=== PATIENT | female | born 1975 | race Caucasian/White ===

== ENCOUNTER 2018-02-01 10:46 | Emergency (ER) | payer SELFPAY ==
--- NOTE | 2018-02-01 11:39 | ER ---
Nurse's Notes [facility] Name: Lexi Bolaños Age: 42 yrs Sex: Female : 1975 Arrival Date: 02/01/2018 Time: 10:48 Bed 16 Private MD: None, None Diagnosis: Otalgia, left ear Presentation: 02/01 10:51 Presenting complaint: Patient states: Left ear pain for 1 week, got worse today. aj Transition of care: patient was not received from another setting of care. Onset of symptoms was January 25, 2018. Initial Sepsis Screen: Does the patient meet any 2 criteria? No. Patient's initial sepsis screen is negative. Does the patient have a suspected source of infection? No. Patient's initial sepsis screen is negative. Care prior to arrival: None. 10:51 Method Of Arrival: Ambulatory 10:51 Acuity: LUIS 5 aj Triage Assessment: 10:52 General: Appears in no apparent distress. comfortable, Behavior is calm, cooperative, aj appropriate for age. Pain: Complains of pain in left ear. EENT: Reports pain in left ear. Derm: Skin is intact, is healthy with good turgor, Skin is pink, warm \T\ dry. normal. 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 - Social history:: Smoking status: Patient/guardian denies using tobacco. Screenin:32 Abuse screen: Denies threats or abuse. Denies injuries from another. Nutritional ph screening: No deficits noted. Tuberculosis screening: No symptoms or risk factors identified. Fall Risk None identified. Assessment: 11:30 General: Appears in no apparent distress. comfortable, well groomed, Behavior is calm, ph cooperative, appropriate for age, Denies fever, feeling ill. Pain: Complains of pain in left ear. Neuro: Level of Consciousness is awake, alert, obeys commands, Oriented to person, place, time, situation. Cardiovascular: Capillary refill < 3 seconds Patient's skin is warm and dry. Respiratory: Airway is patent Respiratory effort is even, unlabored, Denies cough. EENT: Reports pain in left ear. Derm: Skin is intact, is healthy with good turgor, Skin is pink, warm \T\ dry. Musculoskeletal: Circulation, motion, and sensation intact. Range of motion: intact in all extremities. Vital Signs: 10:52 BP 157 / 92; Pulse 77; Resp 18; Temp 97.7; Pulse Ox 98% on R/A; Weight 79.38 kg; Height aj 5 ft. 8 in. (172.72 cm); Pain 7/10; 10:52 Body Mass Index 26.61 (79.38 kg, 172.72 cm) aj ED Course: 10:48 Patient arrived in ED. mr 10:48 None, None is Private Physician. mr 10:52 Triage completed. aj 10:52 Arm band placed on right wrist. Patient placed in an exam room. aj 10:56 Verna Hall FNP-C is PHCP. kb 10:56 Mono Hercules MD is Attending Physician. kb 11:30 Meeta Noyola, RN is Primary Nurse. ph 11:32 Patient has correct armband on for positive identification. Placed in gown. Bed in low ph position. Call light in reach. Side rails up X 1. Pulse ox on. NIBP on. Warm blanket given. 11:32 No provider procedures requiring assistance completed. Patient did not have IV access ph during this emergency room visit. Administered Medications: No medications were administered Outcome: 11:39 Discharge ordered by . kb 11:47 Discharged to home ambulatory. ph 11:47 Condition: good 11:47 Discharge instructions given to patient, Instructed on discharge instructions, follow up and referral plans. Demonstrated understanding of instructions, follow-up care. 11:47 Patient left the ED. ph Signatures: Verna Hall FNP-C FNP-Ckb Myers, Amanda, RN RN aj Rivera, Maria mr Meeta Noyola, BEVERLY PAUL ph
--- NOTE | 2018-02-01 11:39 | EDPHYS ---
Physician Documentation [facility] Name: Lexi Bolaños Age: 42 yrs Sex: Female : 1975 Arrival Date: 02/01/2018 Time: 10:48 Bed 16 Private MD: None, None ED Physician Mono Hercules HPI: 02/01 11:40 This 42 yrs old Female presents to ER via Ambulatory with complaints of Ear kb Pain. 11:40 The patient presents with pain, mild. The complaints affect the left ear. Onset: The kb symptoms/episode began/occurred 1 week(s) ago. Modifying factors: The symptoms are alleviated by nothing, the symptoms are aggravated by nothing. Associated signs and symptoms: The patient has no apparent associated signs or symptoms. Severity of symptoms: At their worst the symptoms were mild in the emergency department the symptoms are unchanged. The patient has not experienced similar symptoms in the past. The patient has not recently seen a physician. Pt states she has had left ear pain for a week and just wanted to make sure her eardrum was ok. Denies hearing abnormality, drainage, fever,. 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 - Social history:: Smoking status: Patient/guardian denies using tobacco. ROS: 11:39 Constitutional: Negative for fever, chills, and weight loss, Cardiovascular: Negative kb for chest pain, palpitations, and edema, Respiratory: Negative for shortness of breath, cough, wheezing, and pleuritic chest pain, Abdomen/GI: Negative for abdominal pain, nausea, vomiting, diarrhea, and constipation, : Negative for injury, bleeding, discharge, and swelling, MS/Extremity: Negative for injury and deformity, Skin: Negative for injury, rash, and discoloration, Neuro: Negative for headache, weakness, numbness, tingling, and seizure. 11:39 ENT: Positive for ear pain, Negative for injury or acute deformity, drainage from ear(s), rhinorrhea, sinus congestion, sinus pain, sore throat. Exam: 11:39 Constitutional: This is a well developed, well nourished patient who is awake, alert, kb and in no acute distress. Head/Face: Normocephalic, atraumatic. ENT: Nares patent. No nasal discharge, no septal abnormalities noted. Tympanic membranes are normal and external auditory canals are clear. Oropharynx with no redness, swelling, or masses, exudates, or evidence of obstruction, uvula midline. Mucous membranes moist. Neck: Trachea midline, no thyromegaly or masses palpated, and no cervical lymphadenopathy. Supple, full range of motion without nuchal rigidity, or vertebral point tenderness. No Meningismus. Chest/axilla: Normal chest wall appearance and motion. Nontender with no deformity. No lesions are appreciated. Cardiovascular: Regular rate and rhythm with a normal S1 and S2. No gallops, murmurs, or rubs. Normal PMI, no JVD. No pulse deficits. Respiratory: Lungs have equal breath sounds bilaterally, clear to auscultation and percussion. No rales, rhonchi or wheezes noted. No increased work of breathing, no retractions or nasal flaring. Abdomen/GI: Soft, non-tender, with normal bowel sounds. No distension or tympany. No guarding or rebound. No evidence of tenderness throughout. Skin: Warm, dry with normal turgor. Normal color with no rashes, no lesions, and no evidence of cellulitis. MS/ Extremity: Pulses equal, no cyanosis. Neurovascular intact. Full, normal range of motion. Neuro: Awake and alert, GCS 15, oriented to person, place, time, and situation. Cranial nerves II-XII grossly intact. Motor strength 5/5 in all extremities. Sensory grossly intact. Cerebellar exam normal. Normal gait. Vital Signs: 10:52 BP 157 / 92; Pulse 77; Resp 18; Temp 97.7; Pulse Ox 98% on R/A; Weight 79.38 kg; Height aj 5 ft. 8 in. (172.72 cm); Pain 7/10; 10:52 Body Mass Index 26.61 (79.38 kg, 172.72 cm) aj MDM: 11:04 Patient medically screened. [facility] 11:40 Data reviewed: vital signs, nurses notes. Data interpreted: Pulse oximetry: on room air kb is 98 %. Interpretation: normal. Counseling: I had a detailed discussion with the patient and/or guardian regarding: the historical points, exam findings, and any diagnostic results supporting the discharge/admit diagnosis, the need for outpatient follow up, an ENT specialist, to return to the emergency department if symptoms worsen or persist or if there are any questions or concerns that arise at home. Administered Medications: No medications were administered Disposition: 13:37 Co-signature as Attending Physician, Mono Hercules MD I agree with the assessment and ilia plan of care. Disposition: 02/01/18 11:39 Discharged to Home. Impression: Otalgia, left ear. - Condition is Stable. - Discharge Instructions: Earache. - Medication Reconciliation Form, Thank You Letter, Antibiotic Education, Prescription Opioid Use form. - Follow up: Private Physician; When: 2 - 3 days; Reason: Recheck today's complaints, Continuance of care, Re-evaluation by your physician. Follow up: Emergency Department; When: As needed; Reason: Worsening of condition. Signatures: Verna Hall, LUCY-C TABLE TENDER-Susan Gomez RN RN aj Anderson, Corey, MD MD cha Hall, Patricia RN RN ph Corrections: (The following items were deleted from the chart) 11:47 11:39 02/01/2018 11:39 Discharged to Home. Impression: Otalgia, left ear. Condition is ph Stable. Forms are Medication Reconciliation Form, Thank You Letter, Antibiotic Education, Prescription Opioid Use. Follow up: Private Physician; When: 2 - 3 days; Reason: Recheck today's complaints, Continuance of care, Re-evaluation by your physician. Follow up: Emergency Department; When: As needed; Reason: Worsening of condition. kb
== END 2018-02-01 11:47 | disposition home or self-care (01) ==
LOC: ER 10:46
DX: H92.02 Otalgia, left ear (principal)
CPT/HCPCS: 99283

== ENCOUNTER 2018-04-17 05:14 | Emergency (ER) | payer BC, SELFPAY ==
[2018-04-17] MEDS ORDERED: DIPHENOX/ATROP SULF 1 TAB PO ONE (05:43)
[2018-04-17] MEDS ORDERED: NA CHLORIDE 0.9% 1,000 ML ONE (05:43)
[2018-04-17] MEDS ORDERED: ONDANSETRON 4 MG/2 ML VIAL ONE (05:43)
[2018-04-17 05:59] LABS: Absolute Lymphocytes (CBC) 1.9 K/uL (0.7-4.9); Absolute Monocytes 0.5 K/uL (0.1-1.3); Absolute Neutrophil 3.2 K/uL (1.8-8.0); Basophils % 0.8 % (0-1.3); Eosinophils % 5.5 % (0-4.4); Hematocrit 36.9 % (36.0-45.0); Lymphocytes % 31.8 % (15.3-44.8); MCH 30.2 pg (27.0-35.0); MCV 87.8 fL (80-100); MPV 8.9 fL (7.6-11.3); Monocytes % 7.9 % (3.3-12.3)
[2018-04-17 06:34] LABS: ALT/SGPT 16 U/L (12-78); AST/SGOT 11 U/L (15-37); Albumin 3.7 g/dL (3.4-5.0); Alkaline Phosphatase 54 U/L (45-117); Amylase Level 51 U/L (25-115); BUN Blood Urea Nitrogen 10 mg/dL (7-18); Bicarbonate 29 mmol/L (21-32); Bilirubin Direct 0.1 mg/dL (0-0.2); Bilirubin Total 0.3 mg/dL (0.2-1.0); Glucose Level 94 mg/dL (74-106); Lipase 142 U/L (73-393); Potassium 3.9 mmol/L (3.5-5.1); Protein, Total 7.3 g/dL (6.4-8.2); Sodium Level 140 mmol/L (136-145)
--- NOTE | 2018-04-17 06:40 | EDPHYS ---
Physician Documentation [facility] Name: Lexi Bolaños Age: 43 yrs Sex: Female : 1975 Arrival Date: 04/17/2018 Time: 05:15 Bed 5 Private MD: ED Physician Cholo Oneal HPI: 04/17 05:37 This 43 yrs old Female presents to ER via Ambulatory with complaints of pkl Diarrhea. 05:37 The patient presents to the emergency department with vomiting, diarrhea. Onset: The pkl symptoms/episode began/occurred just prior to arrival, 2 hour(s) ago. Possible causes: unknown. 05:37 Patient had cyst removed from neck 2 weeks ago. Finished a course of antibiotic ( pkl Keflex ) [address] 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 - Social history:: Smoking status: Patient uses tobacco products, denies chronic smoking, but will smoke occasionally. - Ebola Screening: : No symptoms or risks identified at this time. ROS: 05:37 Eyes: Negative for injury, pain, redness, and discharge, ENT: Negative for injury, pkl pain, and discharge, Neck: Negative for injury, pain, and swelling, Cardiovascular: Negative for chest pain, palpitations, and edema, Respiratory: Negative for shortness of breath, cough, wheezing, and pleuritic chest pain. 05:37 Abdomen/GI: Positive for nausea, vomiting, and diarrhea. 05:37 Back: Negative for acute changes. 05:37 : Negative for urinary symptoms. 05:37 MS/extremity: Negative for acute changes. 05:37 Skin: Negative for rash. 05:37 Neuro: Negative for altered mental status. Exam: 05:37 Head/Face: Normocephalic, atraumatic. Eyes: Pupils equal round and reactive to light, pkl extra-ocular motions intact. Lids and lashes normal. Conjunctiva and sclera are non-icteric and not injected. Cornea within normal limits. Periorbital areas with no swelling, redness, or edema. ENT: Nares patent. No nasal discharge, no septal abnormalities noted. Tympanic membranes are normal and external auditory canals are clear. Oropharynx with no redness, swelling, or masses, exudates, or evidence of obstruction, uvula midline. Mucous membranes moist. Neck: Trachea midline, no thyromegaly or masses palpated, and no cervical lymphadenopathy. Supple, full range of motion without nuchal rigidity, or vertebral point tenderness. No Meningismus. Chest/axilla: Normal chest wall appearance and motion. Nontender with no deformity. No lesions are appreciated. Cardiovascular: Regular rate and rhythm with a normal S1 and S2. No gallops, murmurs, or rubs. Normal PMI, no JVD. No pulse deficits. Respiratory: Lungs have equal breath sounds bilaterally, clear to auscultation and percussion. No rales, rhonchi or wheezes noted. No increased work of breathing, no retractions or nasal flaring. 05:37 Abdomen/GI: Bowel sounds: active, Palpation: abdomen is soft and non-tender, in all quadrants. 05:37 Back: Exam negative for acute changes. 05:37 : Exam negative for acute changes. 05:37 Musculoskeletal/extremity: Exam is negative for acute changes. 05:37 Skin: Exam negative for rash. 05:37 Neuro: Orientation: is normal, Mentation: is normal, Cranial nerves: grossly normal, Motor: is normal. Vital Signs: 05:28 BP 174 / 92; Pulse 68; Resp 16; Temp 98.3(O); Pulse Ox 98% on R/A; Weight 83.91 kg; lp1 Height 5 ft. 8 in. (172.72 cm); Pain 0/10; 06:30 BP 152 / 71; Pulse 64; Resp 16; Pulse Ox 99% on R/A; lp1 05:28 Body Mass Index 28.13 (83.91 kg, 172.72 cm) lp1 MDM: 05:19 Patient medically screened. pkl 06:39 Data reviewed: vital signs, nurses notes, lab test result(s). pkl 04/17 05:35 Order name: Amylase, Serum; Complete Time: 06:34 pkl 04/17 05:35 Order name: Basic Metabolic Panel; Complete Time: 06:34 pkl 04/17 05:35 Order name: CBC with Diff; Complete Time: 06:10 pkl 04/17 05:35 Order name: Hepatic Function; Complete Time: 06:34 pkl 04/17 05:35 Order name: Lipase; Complete Time: 06:34 pkl 04/17 05:35 Order name: IV Saline Lock; Complete Time: 06:10 pkl 04/17 05:35 Order name: Labs collected and sent; Complete Time: 06:10 pkl Administered Medications: 05:51 Drug: NS 0.9% 1000 ml Route: IV; Rate: 1000 ml; Site: right antecubital; lp1 06:42 Follow up: IV Status: Completed infusion; IV Intake: 900ml lp1 05:51 Drug: Zofran 4 mg Route: IVP; Site: right antecubital; lp1 06:41 Follow up: Response: Nausea is decreased lp1 05:52 Drug: LoMOTIL 2 tabs Route: PO; lp1 06:42 Follow up: Response: No adverse reaction lp1 Disposition: 04/17/18 06:39 Discharged to Home. Impression: Gastrenteritis. - Condition is Stable. - Prescriptions for Zofran 4 mg Oral Tablet - take 1 tablet by ORAL route every 12 hours As needed; 6 tablet. Lomotil 2.5- 0.025 mg Oral Tablet - take 2 tablets by ORAL route once daily As needed; 10 tablet. - Work release form, Medication Reconciliation Form, Thank You Letter, Antibiotic Education, Prescription Opioid Use form. - Follow up: Private Physician; When: 1 - 2 days; Reason: Re-evaluation by your physician. - Problem is new. - Symptoms have improved. Signatures: Dispatcher [employer] [facility] Cholo Oneal MD MD pkl Vikki Graves, RN RN lp1 Corrections: (The following items were deleted from the chart) 05:51 05:36 Creatinine for Radiology+C.LAB.BRZ ordered. [facility] 06:59 06:39 04/17/2018 06:39 Discharged to Home. Impression: Gastrenteritis. Condition is lp1 Stable. Forms are Medication Reconciliation Form, Thank You Letter, Antibiotic Education, Prescription Opioid Use. Follow up: Private Physician; When: 1 - 2 days; Reason: Re-evaluation by your physician. Problem is new. Symptoms have improved. pkl
--- NOTE | 2018-04-17 06:40 | ER ---
Nurse's Notes [facility] Name: Lexi Bolaños Age: 43 yrs Sex: Female : 1975 Arrival Date: 04/17/2018 Time: 05:15 Bed 5 Private MD: Diagnosis: Gastrenteritis Presentation: 04/17 05:26 Presenting complaint: Patient states: Diarrhea that began 2 hours ago, states 3 lp1 episodes; feeling weak; Concerned because she had episodes of diarrhea last week as well; Cyst removal of neck a couple weeks ago, completed antibiotics last Sunday; Denies any fever, abdominal pain; states nausea at this time. Transition of care: patient was not received from another setting of care. Onset of symptoms was April 17, 2018 at 03:30. Risk Assessment: Do you want to hurt yourself or someone else? Patient reports no desire to harm self or others. Initial Sepsis Screen: Does the patient meet any 2 criteria? No. Patient's initial sepsis screen is negative. Does the patient have a suspected source of infection? No. Patient's initial sepsis screen is negative. Care prior to arrival: None. 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 - Social history:: Smoking status: Patient uses tobacco products, denies chronic smoking, but will smoke occasionally. - Ebola Screening: : No symptoms or risks identified at this time. Screenin:31 Abuse screen: Denies threats or abuse. Denies injuries from another. Nutritional lp1 screening: No deficits noted. Tuberculosis screening: No symptoms or risk factors identified. Fall Risk None identified. Assessment: 05:30 General: Appears in no apparent distress. Behavior is calm, cooperative, appropriate lp1 for age. Pain: Denies pain. Neuro: Level of Consciousness is awake, alert, obeys commands. Cardiovascular: Patient's skin is warm and dry. Respiratory: Respiratory effort is even, unlabored. GI: Abdomen is non-distended, Reports diarrhea, nausea. : No signs and/or symptoms were reported regarding the genitourinary system. EENT: No signs and/or symptoms were reported regarding the EENT system. Derm: Skin is pink, warm \T\ dry. Musculoskeletal: Circulation, motion, and sensation intact. 06:30 Reassessment: Patient appears in no apparent distress at this time. Patient is alert, lp1 oriented x 3, equal unlabored respirations, skin warm/dry/pink. Patient states feeling better. Patient states symptoms have improved. Vital Signs: 05:28 BP 174 / 92; Pulse 68; Resp 16; Temp 98.3(O); Pulse Ox 98% on R/A; Weight 83.91 kg; lp1 Height 5 ft. 8 in. (172.72 cm); Pain 0/10; 06:30 BP 152 / 71; Pulse 64; Resp 16; Pulse Ox 99% on R/A; lp1 05:28 Body Mass Index 28.13 (83.91 kg, 172.72 cm) lp1 ED Course: 05:15 Patient arrived in ED. ds1 05:18 Cholo Oneal MD is Attending Physician. pkl 05:25 Vikki Graves RN is Primary Nurse. lp1 05:28 Triage completed. lp1 05:28 Arm band placed on left wrist. lp1 05:31 Patient has correct armband on for positive identification. Pulse ox on. NIBP on. lp1 05:45 Inserted saline lock: 20 gauge in right antecubital area, using aseptic technique. By lp1 Artem Dallas RN. 06:41 No provider procedures requiring assistance completed. lp1 06:57 IV discontinued, No redness/swelling at site. Pressure dressing applied. lp1 Administered Medications: 05:51 Drug: NS 0.9% 1000 ml Route: IV; Rate: 1000 ml; Site: right antecubital; lp1 06:42 Follow up: IV Status: Completed infusion; IV Intake: 900ml lp1 05:51 Drug: Zofran 4 mg Route: IVP; Site: right antecubital; lp1 06:41 Follow up: Response: Nausea is decreased lp1 05:52 Drug: LoMOTIL 2 tabs Route: PO; lp1 06:42 Follow up: Response: No adverse reaction lp1 Intake: 06:42 IV: 900ml; Total: 900ml. lp1 Outcome: 06:39 Discharge ordered by . pkcoleen 06:57 Discharged to home ambulatory. lp1 06:57 Condition: good 06:57 Discharge instructions given to patient, Instructed on discharge instructions, follow up and referral plans. medication usage, Demonstrated understanding of instructions, follow-up care, medications, Prescriptions given X 2. 06:59 Patient left the ED. lp1 Signatures: Cholo Oneal MD MD pkJocelyn Maradiaga ds1 Vikki Graves, RN RN lp1
== END 2018-04-17 06:59 | disposition home or self-care (01) ==
LOC: ER 05:14
DX: K52.9 Noninfective gastroenteritis and colitis, unspecified (principal)
CPT/HCPCS: 36415; 80048; 80076; 82150; 83690; 85025; 96361; 96374; 99284; J2405; J7030

== ENCOUNTER 2018-06-01 07:20 | Emergency (ER) | payer BC, SELFPAY ==
--- NOTE | 2018-06-01 09:21 | ER ---
Nurse's Notes [facility] Name: Lexi Bolaños Age: 43 yrs Sex: Female : 1975 Arrival Date: 06/01/2018 Time: 07:22 Bed 5 Private MD: None, None Diagnosis: Viral upper respiratory infection Presentation: 06/01 07:40 Presenting complaint: Patient states: Body aches, sinus congestion, sneezing, hb productive cough with greenish sputum x 5 days. Transition of care: patient was not received from another setting of care. Onset of symptoms was May 28, 2018. Risk Assessment: Do you want to hurt yourself or someone else? Patient reports no desire to harm self or others. Initial Sepsis Screen: Does the patient meet any 2 criteria? No. Patient's initial sepsis screen is negative. Does the patient have a suspected source of infection? No. Patient's initial sepsis screen is negative. Care prior to arrival: None. 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 - Social history:: Smoking status: Patient/guardian denies using tobacco. - Ebola Screening: : No symptoms or risks identified at this time. - Family history:: not pertinent. - Hospitalizations: : No recent hospitalization is reported. Screenin:42 Abuse screen: Denies threats or abuse. Denies injuries from another. Nutritional hb screening: No deficits noted. Tuberculosis screening: No symptoms or risk factors identified. Fall Risk None identified. Assessment: 07:45 General: Appears in no apparent distress. Behavior is calm, cooperative. Pain: Pain hb currently is 2 out of 10 on a pain scale. Neuro: Level of Consciousness is awake, alert, obeys commands, Oriented to person, place, time, situation. Cardiovascular: Capillary refill < 3 seconds Patient's skin is warm and dry. Respiratory: Airway is patent Trachea midline Respiratory effort is even, unlabored, Respiratory pattern is regular, symmetrical, Breath sounds are clear bilaterally. GI: No signs and/or symptoms were reported involving the gastrointestinal system. : No signs and/or symptoms were reported regarding the genitourinary system. EENT: Reports pain when swallowing. Derm: No signs and/or symptoms reported regarding the dermatologic system. Skin is intact, is healthy with good turgor. Musculoskeletal: Reports body aches. 08:45 Reassessment: Patient appears in no apparent distress at this time. No changes from hb previously documented assessment. Patient and/or family updated on plan of care and expected duration. Pain level reassessed. Patient is alert, oriented x 3, equal unlabored respirations, skin warm/dry/pink. Vital Signs: 07:39 BP 143 / 89; Pulse 84; Resp 15; Temp 98.1; Pulse Ox 100% on R/A; Pain 2/10; hb 08:30 BP 123 / 73; Pulse 83; Resp 14; Pulse Ox 99% on R/A; hb ED Course: 07:22 Patient arrived in ED. sb2 07:22 None, None is Private Physician. sb2 07:35 Papito South MD is Attending Physician. rn 07:39 Yamini Landrum, RN is Primary Nurse. hb 07:41 Triage completed. hb 07:42 Arm band placed on right wrist. hb 07:42 Patient has correct armband on for positive identification. Bed in low position. Call hb light in reach. Side rails up X 1. 08:14 XRAY Chest Pa And Lat (2 Views) In Process Unspecified. EDMS 09:27 No provider procedures requiring assistance completed. Patient did not have IV access hb during this emergency room visit. Administered Medications: No medications were administered Outcome: 09:20 Discharge ordered by . rn 09:27 Discharged to home ambulatory. hb 09:27 Condition: stable 09:27 Discharge instructions given to patient, Instructed on discharge instructions, follow up and referral plans. medication usage, Demonstrated understanding of instructions, follow-up care, medications. 09:27 Patient left the ED. Signatures: Dispatcher [employer] EDMS Papito South MD MD rn Baxter, Heather, BEVERLY RN Breonna Lewis sb2
--- NOTE | 2018-06-01 09:21 | EDPHYS ---
Physician Documentation [facility] Name: Lexi Bolaños Age: 43 yrs Sex: Female : 1975 Arrival Date: 06/01/2018 Time: 07:22 Bed 5 Private MD: None, None ED Physician Papito South HPI: 06/01 07:47 This 43 yrs old Female presents to ER via Ambulatory with complaints of Flu rn Symptoms. 07:47 The patient or guardian reports cough, flu symptoms. rn 07:47 Onset: The symptoms/episode began/occurred 5 day(s) ago. Severity of symptoms: At their rn worst the symptoms were mild, in the emergency department the symptoms are unchanged. Associated signs and symptoms: Pertinent positives: rhinorrhea, sore throat. The patient has experienced similar episodes in the past. 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 - Social history:: Smoking status: Patient/guardian denies using tobacco. - Ebola Screening: : No symptoms or risks identified at this time. - Family history:: not pertinent. - Hospitalizations: : No recent hospitalization is reported. ROS: 07:47 Constitutional: Negative for fever, chills, and weight loss, Eyes: Negative for injury, rn pain, redness, and discharge, Neck: + sore throat Cardiovascular: Negative for chest pain, palpitations, and edema, Respiratory: + cough and sore throat Abdomen/GI: Negative for abdominal pain, nausea, vomiting, diarrhea, and constipation, MS/Extremity: Negative for injury and deformity, Skin: Negative for injury, rash, and discoloration, Neuro: Negative for headache, weakness, numbness, tingling, and seizure. Exam: 07:47 Constitutional: This is a well developed, well nourished patient who is awake, alert, rn and in no acute distress. Head/Face: Normocephalic, atraumatic. Eyes: Pupils equal round and reactive to light, extra-ocular motions intact. Lids and lashes normal. Conjunctiva and sclera are non-icteric and not injected. Cornea within normal limits. Periorbital areas with no swelling, redness, or edema. ENT: mild pharyngeal erythema, no stridor, MMM Neck: + bilateral cervical anterior LAD Cardiovascular: Regular rate and rhythm with a normal S1 and S2. No gallops, murmurs, or rubs. Normal PMI, no JVD. No pulse deficits. Respiratory: Lungs have equal breath sounds bilaterally, clear to auscultation and percussion. No rales, rhonchi or wheezes noted. No increased work of breathing, no retractions or nasal flaring. Skin: Warm, dry with normal turgor. Normal color with no rashes, no lesions, and no evidence of cellulitis. MS/ Extremity: Pulses equal, no cyanosis. Neurovascular intact. Full, normal range of motion. Equal circumference. Neuro: Awake and alert, GCS 15 Vital Signs: 07:39 BP 143 / 89; Pulse 84; Resp 15; Temp 98.1; Pulse Ox 100% on R/A; Pain 2/10; hb 08:30 BP 123 / 73; Pulse 83; Resp 14; Pulse Ox 99% on R/A; hb MDM: 07:35 Patient medically screened. rn 09:20 Differential Diagnosis: Bronchitis Influenza Upper Respiratory Infection Viral Syndrome rn Pneumonia. Data reviewed: vital signs, nurses notes, lab test result(s), radiologic studies, plain films, and as a result, I will discharge patient. Counseling: I had a detailed discussion with the patient and/or guardian regarding: the historical points, exam findings, and any diagnostic results supporting the discharge/admit diagnosis, lab results, radiology results, the need for outpatient follow up, to return to the emergency department if symptoms worsen or persist or if there are any questions or concerns that arise at home. Special discussion: I discussed with the patient/guardian in detail that at this point there is no indication for admission to the hospital. It is understood, however, that if the symptoms persist or worsen the patient needs to return immediately for re-evaluation. 06/01 07:43 Order name: Strep; Complete Time: 08:53 rn 06/01 07:43 Order name: Flu; Complete Time: 08:53 rn 06/01 07:43 Order name: XRAY Chest Pa And Lat (2 Views) rn 06/01 08:08 Order name: Throat Culture EDMS Administered Medications: No medications were administered Disposition: 06/01/18 09:20 Discharged to Home. Impression: Viral upper respiratory infection. - Condition is Stable. - Discharge Instructions: Upper Respiratory Infection, Adult, Cough, Adult. - Medication Reconciliation Form, Thank You Letter, Antibiotic Education, Prescription Opioid Use form. - Follow up: Private Physician; When: As needed; Reason: Recheck today's complaints, Re-evaluation by your physician. - Problem is an ongoing problem. - Symptoms are unchanged. Signatures: Dispatcher [employer] EDDE Papito South MD MD rn Baxter, Heather, RN RN hb Corrections: (The following items were deleted from the chart) : 09:20 06/01/2018 09:20 Discharged to Home. Impression: Viral upper respiratory hb infection. Condition is Stable. Forms are Medication Reconciliation Form, Thank You Letter, Antibiotic Education, Prescription Opioid Use. Follow up: Private Physician; When: As needed; Reason: Recheck today's complaints, Re-evaluation by your physician. Problem is an ongoing problem. Symptoms are unchanged. rn
--- NOTE | 2018-06-01 10:19 | RAD REPORT ---
EXAM DESCRIPTION: RAD - Chest Pa And Lat (2 Views) - 06/01/2018 9:37 am CLINICAL HISTORY: COUGH Chest pain. COMPARISON: Chest Pa And Lat (2 Views) dated 03/25/2017 FINDINGS: The lungs are clear. The heart is normal in size. No displaced fractures. IMPRESSION: No acute or concerning finding suspected.
== END 2018-06-01 09:27 | disposition home or self-care (01) ==
LOC: ER 07:20
DX: J06.9 Acute upper respiratory infection, unspecified (principal)
CPT/HCPCS: 71046; 87070; 87081; 87804; 99283

== ENCOUNTER 2018-09-13 06:55 | Emergency (ER) | payer SELFPAY ==
[2018-09-13 08:24] LABS: Urine Bacteria LOADED /HPF (<20); Urine RBC TNTC /HPF (NONE SEEN)
[2018-09-13 08:25] LABS: Urine Amorphous Sediment 3+ /HPF (NONE SEEN); Urine Culture Reflex Order NOT NEEDED
[2018-09-13 08:26] LABS: Urine Blood 2+ (NEG); Urine Glucose 1+ (NEG); Urine Protein 1+ (NEG); Urine pH 5.5 (5.0-7.0)
--- NOTE | 2018-09-13 08:29 | ER ---
Nurse's Notes [facility] Name: Lexi Bolaños Age: 43 yrs Sex: Female : 1975 Arrival Date: 09/13/2018 Time: 06:56 Bed 8 Private MD: Diagnosis: Urinary tract infection, site not specified Presentation: 09/13 07:08 Presenting complaint: Patient states: Productive cough with yellow sputum, body aches, bb headache, and pain with cough x 3 days. Transition of care: patient was not received from another setting of care. Onset of symptoms was September 11, 2018. Risk Assessment: Do you want to hurt yourself or someone else? Patient reports no desire to harm self or others. Initial Sepsis Screen: Does the patient meet any 2 criteria? No. Patient's initial sepsis screen is negative. Does the patient have a suspected source of infection? No. Patient's initial sepsis screen is negative. Care prior to arrival: None. 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 - Social history:: Smoking status: Patient/guardian denies using tobacco. - Ebola Screening: : No symptoms or risks identified at this time. Screenin:09 Abuse screen: Denies threats or abuse. Denies injuries from another. Nutritional bb screening: No deficits noted. Tuberculosis screening: No symptoms or risk factors identified. Fall Risk None identified. Assessment: 07:30 General: Appears in no apparent distress. comfortable, Behavior is calm, cooperative, ph appropriate for age, Reports fever for 2-3 days. Pain: Complains of pain in head and "all over". Neuro: Level of Consciousness is awake, alert, obeys commands, Oriented to person, place, time, situation, Reports headache Denies weakness blurred vision dizziness. Cardiovascular: Capillary refill < 3 seconds in bilateral fingers Patient's skin is warm and dry. Respiratory: Reports cough that is productive, Airway is patent Respiratory effort is even, unlabored, Respiratory pattern is regular, symmetrical, Breath sounds are clear bilaterally. GI: No signs and/or symptoms were reported involving the gastrointestinal system. EENT: Reports nasal congestion nasal discharge that is yellow. Derm: Skin is intact, is healthy with good turgor, Skin is pink, warm \\T\\ dry. Musculoskeletal: Circulation, motion, and sensation intact. Range of motion: intact in all extremities. 08:22 Reassessment: Patient appears in no apparent distress at this time. Patient and/or ph family updated on plan of care and expected duration. Pain level reassessed. Patient is alert, oriented x 3, equal unlabored respirations, skin warm/dry/pink. Pt resting quietly, awaiting lab results. 09:05 Reassessment: Pt waiting shot time before discharge. sv 09:17 Reassessment: Patient appears in no apparent distress at this time. Patient and/or sv family updated on plan of care and expected duration. Pain level reassessed. Patient is alert, oriented x 3, equal unlabored respirations, skin warm/dry/pink. Vital Signs: 07:08 BP 123 / 87; Pulse 92; Resp 16; Temp 97.9; Pulse Ox 100% on R/A; Pain 5/10; bb 08:00 BP 128 / 82; Pulse 91; Resp 18; Temp 97.5(TE); Pulse Ox 98% on R/A; ph 09:18 BP 118 / 78; Pulse 87; Resp 18; Pulse Ox 100% on R/A; ph ED Course: 06:56 Patient arrived in ED. es 06:58 [facility]il[facility]C [facility] snw 06:58 Mono Hercules MD is Attending Physician. snw 07:08 Triage completed. bb 07:09 Arm band placed on. bb 07:19 Amarilys Donis, RN is Primary Nurse. sv 07:34 Urine collected: clean catch specimen, cloudy, arun colored. jb1 08:16 Meeta Noyola, RN is Primary Nurse. ph 08:21 Patient has correct armband on for positive identification. Bed in low position. Call ph light in reach. Side rails up X 1. Pulse ox on. NIBP on. Warm blanket given. 09:20 No provider procedures requiring assistance completed. Patient did not have IV access sv during this emergency room visit. Administered Medications: 09:03 Drug: Rocephin (cefTRIAXone) 1 grams Route: IM; Site: right gluteus; sv 09:20 Follow up: Response: No adverse reaction ph Outcome: :28 Discharge ordered by . sally 09:18 Discharged to home ambulatory. sv 09:18 Condition: stable 09:18 Discharge instructions given to patient, Instructed on discharge instructions, follow up and referral plans. medication usage, Demonstrated understanding of instructions, follow-up care, medications, Prescriptions given X 1. 09:20 Patient left the ED. sv Signatures: John Nguyen Stephanie, RN RN sv Shilpa Ron, CRIMINAL JUDGE-C CRIMINAL JUDGE-Csnw Sridevi Singh Brenda, RN RN bb Meeta Noyola RN RN ph
--- NOTE | 2018-09-13 08:29 | EDPHYS ---
Physician Documentation [facility] Name: Lexi Bolaños Age: 43 yrs Sex: Female : 1975 Arrival Date: 09/13/2018 Time: 06:56 Bed 8 Private MD: ED Physician Mono Hercules HPI: 09/13 07:12 This 43 yrs old Female presents to ER via Ambulatory with complaints of Flu snw Symptoms. 07:12 The patient reports fever, not measured (subjective). Onset: The symptoms/episode snw began/occurred suddenly, 3 day(s) ago, and became persistent. Associated signs and symptoms: Pertinent positives: decreased appetite, sinus congestion, sore throat. Severity of symptoms: At their worst the symptoms were moderate. The patient has experienced similar episodes in the past. The patient has not recently seen a physician. 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 - Social history:: Smoking status: Patient/guardian denies using tobacco. - Ebola Screening: : No symptoms or risks identified at this time. ROS: 07:10 Eyes: Negative for injury, pain, redness, and discharge. snw 07:10 Neck: Negative for injury, pain, and swelling, Cardiovascular: Negative for chest pain, palpitations, and edema, Respiratory: Negative for shortness of breath, cough, wheezing, and pleuritic chest pain, Abdomen/GI: Negative for abdominal pain, nausea, vomiting, diarrhea, and constipation, Back: Negative for injury and pain, : Negative for injury, bleeding, discharge, and swelling, MS/Extremity: Negative for injury and deformity, Skin: Negative for injury, rash, and discoloration, Neuro: Negative for headache, weakness, numbness, tingling, and seizure. 07:10 Constitutional: Positive for body aches, fatigue, fever, malaise. 07:10 ENT: Positive for sore throat. Exam: 07:10 Constitutional: This is a well developed, well nourished patient who is awake, alert, snw and in no acute distress. Head/Face: Normocephalic, atraumatic. Eyes: Pupils equal round and reactive to light, extra-ocular motions intact. Lids and lashes normal. Conjunctiva and sclera are non-icteric and not injected. Cornea within normal limits. Periorbital areas with no swelling, redness, or edema. Neck: Trachea midline, no thyromegaly or masses palpated, and no cervical lymphadenopathy. Supple, full range of motion without nuchal rigidity, or vertebral point tenderness. No Meningismus. Chest/axilla: Normal chest wall appearance and motion. Nontender with no deformity. No lesions are appreciated. Cardiovascular: Regular rate and rhythm with a normal S1 and S2. No gallops, murmurs, or rubs. Normal PMI, no JVD. No pulse deficits. Respiratory: Lungs have equal breath sounds bilaterally, clear to auscultation and percussion. No rales, rhonchi or wheezes noted. No increased work of breathing, no retractions or nasal flaring. Abdomen/GI: Soft, non-tender, with normal bowel sounds. No distension or tympany. No guarding or rebound. No evidence of tenderness throughout. Back: No spinal tenderness. No costovertebral tenderness. Full range of motion. Skin: Warm, dry with normal turgor. Normal color with no rashes, no lesions, and no evidence of cellulitis. MS/ Extremity: Pulses equal, no cyanosis. Neurovascular intact. Full, normal range of motion. Neuro: Awake and alert, GCS 15, oriented to person, place, time, and situation. Cranial nerves II-XII grossly intact. Motor strength 5/5 in all extremities. Sensory grossly intact. Cerebellar exam normal. Normal gait. Psych: Awake, alert, with orientation to person, place and time. Behavior, mood, and affect are within normal limits. 07:10 ENT: External ear(s): are unremarkable, Ear canal(s): are normal, TM's: fluid levels, on the left, Nose: is normal, Mouth: is normal, Posterior pharynx: erythema, that is moderate, Voice: is normal. Vital Signs: 07:08 BP 123 / 87; Pulse 92; Resp 16; Temp 97.9; Pulse Ox 100% on R/A; Pain 5/10; bb 08:00 BP 128 / 82; Pulse 91; Resp 18; Temp 97.5(TE); Pulse Ox 98% on R/A; ph 09:18 BP 118 / 78; Pulse 87; Resp 18; Pulse Ox 100% on R/A; ph MDM: 07:02 Patient medically screened. snw 08:29 Data reviewed: vital signs, nurses notes. Data interpreted: Pulse oximetry: on room air snw is 100 %. Interpretation: normal. Counseling: I had a detailed discussion with the patient and/or guardian regarding: the historical points, exam findings, and any diagnostic results supporting the discharge/admit diagnosis, the presence of at least one elevated blood pressure reading (>120/80) during this emergency department visit, lab results, the need for outpatient follow up, to return to the emergency department if symptoms worsen or persist or if there are any questions or concerns that arise at home. Special discussion: I have referred the patient to see his PCP for further evaluation of high blood pressure. Based on the history and exam findings, there is no indication for further emergent testing or inpatient evaluation. I discussed with the patient/guardian the need to see the primary care provider for further evaluation of the symptoms. 09/13 06:58 Order name: Strep; Complete Time: 07:40 snw 09/13 06:58 Order name: Urine Microscopic Only; Complete Time: 08:27 snw 09/13 07:34 Order name: Urine Dipstick--Ancillary (enter results); Complete Time: 08:27 lt1 09/13 07:35 Order name: Urine Culture jb1 09/13 07:36 Order name: Urine --Ancillary (enter results); Complete Time: 08:27 lt1 09/13 06:58 Order name: Urine Dipstick-Ancillary (obtain specimen); Complete Time: 07:34 snw 09/13 07:40 Order name: Throat Culture EDMS Administered Medications: 09:03 Drug: Rocephin (cefTRIAXone) 1 grams Route: IM; Site: right gluteus; sv 09:20 Follow up: Response: No adverse reaction ph Disposition: 15:53 Co-signature as Attending Physician, Mono Hercules MD I agree with the assessment and ilia plan of care. Disposition: 09/13/18 08:28 Discharged to Home. Impression: Urinary tract infection, site not specified. - Condition is Stable. - Discharge Instructions: Hypertension, Urinary Tract Infection, Adult, Rehydration, Adult. - Prescriptions for Macrobid 100 mg Oral Capsule - take 1 capsule by ORAL route every 12 hours for 10 days; 20 capsule. - Work release form, Medication Reconciliation Form, Thank You Letter, Antibiotic Education, Prescription Opioid Use form. - Follow up: Private Physician; When: 2 - 3 days; Reason: Recheck today's complaints, Continuance of care, Re-evaluation by your physician. Signatures: Dispatcher [employer] Amarilys Aponte, BEVERLY RN Mono Stauffer MD MD cha Therrien, Shelly, CLOTHES SEPARATOR-C CLOTHES SEPARATOR-Csnw Monika Cabrera RN RN bb Meeta Noyola RN ph Corrections: (The following items were deleted from the chart) 09:20 08:28 09/13/2018 08:28 Discharged to Home. Impression: Urinary tract infection, site sv not specified. Condition is Stable. Forms are Medication Reconciliation Form, Thank You Letter, Antibiotic Education, Prescription Opioid Use. Follow up: Private Physician; When: 2 - 3 days; Reason: Recheck today's complaints, Continuance of care, Re-evaluation by your physician. snw
[2018-09-13] MEDS ORDERED: LIDOCAINE 1% MPF 2 ML AMPULE ONE (08:51)
[2018-09-13] MEDS ORDERED: CEFTRIAXONE 1000 MG/VIAL ONE (08:51)
== END 2018-09-13 09:20 | disposition home or self-care (01) ==
LOC: ER 06:55
DX: N39.0 Urinary tract infection, site not specified (principal)
CPT/HCPCS: 81003; 81015; 81025; 87070; 87081; 87086; 87088; 96372; 99284; J2001